=== PATIENT | female | born 1945 | race Caucasian/White ===

== ENCOUNTER → 2017-03-13 | Outpatient (CLI) | payer OTHER | LOC: RAD 16:26 | DX: I40.9 Acute myocarditis, unspecified (principal) | CPT/HCPCS: 71020 ==

== ENCOUNTER 2021-05-31 09:28 | Emergency (ER) | payer OTHER ==
[~2021-05-31 09:28] MED LIST: CEFUROXIME500 MG PO; KEFLEX500 MG PO; MOBIC15 MG PO; NORVASC 5 MG TAB5 MG PO; PRINIVIL20 MG PO; ULTRAM50 MG PO
[2021-05-31 10:07] LABS: HEMOGLOBIN 12.3 gm/dl (12.3-15.3); RED BLOOD COUNT 4.41 M/UL (4.00-5.10); WHITE BLOOD COUNT 5.3 K/UL (4.5-11.0)
[2021-05-31 10:37] LABS: BUN/CREATININE RATIO 19 (0-10)
[2021-05-31] MEDS ORDERED: DECADRON4 MG PO (13:17)
[2021-05-31] MEDS ORDERED: TESSALON PERLE100 MG PO (13:17)
[2021-05-31] MEDS ORDERED: VENTOLIN HFA 66.7 GM INH (13:17)
== END 2021-05-31 13:30 | disposition left against medical advice (07) ==
LOC: ER1 09:28
PROVIDERS: Nurse Practitioner
DX: U07.1 COVID-19 (principal); R09.02 Hypoxemia; I10 Essential (primary) hypertension; M19.90 Unspecified osteoarthritis, unspecified site; Z90.710 Acquired absence of both cervix and uterus; Z88.2 Allergy status to sulfonamides; Z88.1 Allergy status to other antibiotic agents; Z79.84 Long term (current) use of oral hypoglycemic drugs
CPT/HCPCS: 0240U; 36600; 71045; 80053; 82550; 82553; 82803; 83605; 83874; 84484; 85025; 87040; 93005; 99285

== ENCOUNTER → 2022-03-23 | Outpatient (CLI) | payer OTHER ==
[~2022-03-23] MED LIST changes: +DECADRON4 MG PO; +TESSALON PERLE100 MG PO; +VENTOLIN HFA 66.7 GM INH
== END ==
LOC: ECHO 11:32
DX: I08.1 Rheumatic disorders of both mitral and tricuspid valves (principal)
CPT/HCPCS: ECHO; 93306

== ENCOUNTER → 2022-04-11 | Outpatient (CLI) | payer OTHER | LOC: NM 07:21 | DX: R74.8 Abnormal levels of other serum enzymes (principal); K76.0 Fatty (change of) liver, not elsewhere classified; K80.20 Calculus of gallbladder without cholecystitis without obstruction | CPT/HCPCS: 76705; 78306; A9503 ==

== ENCOUNTER → 2022-05-08 | Outpatient (CLI) | payer OTHER | LOC: RT 08:31 | DX: I10 Essential (primary) hypertension (principal) | CPT/HCPCS: 93005 ==

== ENCOUNTER → 2022-06-12 | Outpatient (CLI) | payer OTHER | LOC: KOH-I 14:02 | DX: E04.2 Nontoxic multinodular goiter (principal) | CPT/HCPCS: 76536 ==

== ENCOUNTER → 2022-08-24 | Outpatient (CLI) | payer OTHER | LOC: EROP 19:39 | DX: N39.0 Urinary tract infection, site not specified (principal); B96.5 Pseudomonas (aeruginosa) (mallei) (pseudomallei) as the cause of diseases classified elsewhere | CPT/HCPCS: 96365; J0692 ==

== ENCOUNTER → 2022-08-24 | Outpatient (CLI) | payer OTHER ==
[~2022-08-24] VITALS: Ht 170.2 cm; Wt 66.2 kg
== END ==
LOC: OPSV 07:49
DX: N39.0 Urinary tract infection, site not specified (principal); B96.5 Pseudomonas (aeruginosa) (mallei) (pseudomallei) as the cause of diseases classified elsewhere
CPT/HCPCS: 96365; J0692

== ENCOUNTER → 2022-08-25 | Outpatient (CLI) | payer OTHER ==
[~2022-08-25] VITALS: Ht 170.2 cm; Wt 66.2 kg
== END ==
LOC: OPSV 07:27
DX: N39.0 Urinary tract infection, site not specified (principal); B96.5 Pseudomonas (aeruginosa) (mallei) (pseudomallei) as the cause of diseases classified elsewhere
CPT/HCPCS: 96365; J0692

== ENCOUNTER → 2022-08-25 | Outpatient (CLI) | payer OTHER ==
[~2022-08-25] VITALS: Ht 170.2 cm; Wt 66.2 kg
== END ==
LOC: EROP 18:45
DX: N39.0 Urinary tract infection, site not specified (principal); B96.5 Pseudomonas (aeruginosa) (mallei) (pseudomallei) as the cause of diseases classified elsewhere
CPT/HCPCS: 96365; J0692